=== PATIENT | male | born 1945 | race Caucasian/White ===

== ENCOUNTER → 2019-03-14 10:48 | Outpatient (CLI) | payer OTHER, SELFPAY ==
--- NOTE | 2019-03-14 10:50 | DI.RAD.S_ITS ---
PROCEDURE: XR LUMBAR SPINE MIN 4V INDICATIONS: Chronic progressive low back pain TECHNIQUE: 5 views of the lumbar spine were acquired. COMPARISON: None. FINDINGS: Bones: 5 nonrib-bearing vertebrae are present. There is normal bony alignment. No vertebral body compression fractures. Moderate to severe disc height loss L4-5 and L5-S1 with vacuum disc phenomenon. Moderate endplate spurring. Mild L5 facet arthropathy. No suspicious bony lesions. Soft tissues: Overlying bowel gas pattern is normal. No suspicious soft tissue calcifications. Heavy abdominal aortic calcification. No visible aneurysm. Oblique images: No pars defects. IMPRESSION: 1. Moderate to severe disc degeneration at L4-5 and L5-S1. 2. Mild facet arthropathy at L5 may results in foraminal and/or central canal narrowing. Consider MRI for further evaluation. 3. Atherosclerosis. Dictated by: Migdalia Castanon M.D. on 03/14/2019 at 12:38 Approved by: Migdalia Castanon M.D. on 03/14/2019 at 12:40
--- NOTE | 2019-03-14 10:50 | DI.RAD.S_ITS ---
PROCEDURE: XR CERVICAL SPINE 4V OR 5V INDICATIONS: Neck pain status post fall TECHNIQUE: 5 views of the cervical spine acquired. COMPARISON: None. FINDINGS: Bones: No fractures or dislocations to the C7 level. Moderate to severe disc height loss at C3-4 with mild endplate spurs and uncovertebral joint hypertrophy. Moderate disc height loss and mild spurring at C5-6 and C6-7. Trace anterolisthesis C4 on 5. Oblique images demonstrate moderate to severe right C3-4 and mild left C3-4 bony foraminal stenoses. Soft tissues: No prevertebral soft tissue swelling. Coarse bilateral carotid bulb calcification. IMPRESSION: 1. No radiographic evidence of acute cervical spine trauma. 2. Chronic disc and endplate degeneration resulting in bilateral bony foraminal stenosis at C3-4. 3. Disc and endplate degeneration in the low cervical spine. Dictated by: Migdalia Castanon M.D. on 03/14/2019 at 12:35 Approved by: Migdalia Castanon M.D. on 03/14/2019 at 12:37
== END ==
PROVIDERS: Family Provider Internal Medicine; PCP Internal Medicine; Visit Provider Physical Medicine & Rehabilitation
DX: M47.22 Other spondylosis with radiculopathy, cervical region (principal); M50.11 Cervical disc disorder with radiculopathy, high cervical region; M48.02 Spinal stenosis, cervical region; M47.26 Other spondylosis with radiculopathy, lumbar region; M47.27 Other spondylosis with radiculopathy, lumbosacral region; M51.17 Intervertebral disc disorders with radiculopathy, lumbosacral region; M51.16 Intervertebral disc disorders with radiculopathy, lumbar region; G89.29 Other chronic pain; I70.0 Atherosclerosis of aorta
CPT/HCPCS: 72050; 72110

== ENCOUNTER → 2019-04-03 18:14 | Outpatient (CLI) | payer OTHER, SELFPAY ==
--- NOTE | 2019-04-03 18:16 | DI.MRI.S_ITS ---
PROCEDURE: MR LUMBAR SPINE WO CON INDICATIONS: L5 fracture, stenosis TECHNIQUE: Noncontrast sagittal T1 spin echo and T2 fast echo, sagittal STIR, axial T1 and T2 fast spin echo through the lumbar spine. In cases with scoliosis, additional coronal T2 fast spin echo may be performed. COMPARISON: None. FINDINGS: Image quality: Excellent. Alignment and Curvature: There is normal bony alignment. Bone Marrow: Marrow is of normal overall signal. No acute vertebral body compression fractures. Spinal Cord: Conus medullaris terminates at the L1 level. Visualized cord demonstrates normal signal and size. Paraspinous Soft Tissues: No paravertebral masses. L1-L2: Normal appearance. L2-L3: Normal appearance except for slight disc desiccation. L3-L4: There is a mild to moderate degree of degenerative disc disease at this level, with a broad-based posterior mild disc bulge greater on the left than the right. This extends into the neural foramen and combines with asymmetric left-sided facet osteoarthritis to produce mild to moderate left and minimal right-sided foraminal stenosis with potential for asymmetric impingement on the course of the left-sided L3 nerve root. L4-L5: Moderately severe degenerative disc disease, disc height reduction and disc desiccation are accompanied by a broad-based posterior transverse disc bulge greater on the left than the right, with moderately severe left and moderate right foraminal stenosis. There is likelihood of significant impingement on the course of the left L4 nerve root and mild anterior spinal stenosis is associated. L5-S1: Degenerative disc disease at this level is moderately severe, with disc height reduction, disc desiccation, and mild grade 1 retrolisthesis of L5 on S1. The chronic hyperostosis along the disc annulus margin is slightly greater on the left than the right, results in mild left-sided anterior spinal stenosis, but is also accompanied by facet osteoarthritis that is greater on the left than the right. This results in near severe left and moderate right foraminal stenosis with likelihood of asymmetric impingement on the L5 nerve roots. IMPRESSION: No disc herniation is found. There is a combination of both degenerative disc disease and facet osteoarthritis that is generally greater on the left than the right and results in multilevel mild spinal stenosis but a more prominent degree of foraminal stenosis. No recent trauma found. Dictated by: Jd Kingsley M.D. on 04/04/2019 at 12:21 Approved by: Jd Kingsley M.D. on 04/04/2019 at 12:27
--- NOTE | 2019-04-03 18:16 | DI.MRI.S_ITS ---
PROCEDURE: MR CERVICAL SPINE WO CON INDICATIONS: Multilevel cervical stenosis with radiculopathy TECHNIQUE: Noncontrast sagittal T1 spin echo and T2 fast spin echo, sagittal STIR, foraminal oblique sagittal T2 fast spin echo, and axial gradient echo or T2 fast spin echo through the cervical spine. COMPARISON: None. FINDINGS: Image quality: Excellent. Alignment and Curvature: There is normal bony alignment. Bone Marrow: Marrow demonstrates normal overall signal. Spinal Cord: Visualized spinal cord has normal size and signal. No cerebellar tonsillar herniation. Paraspinous Soft Tissues: No paravertebral masses. Prevertebral soft tissues are normal in thickness. C2-C3: Minimal degenerative disc desiccation is present, no appreciable spinal or foraminal stenosis. C3-C4: The degenerative disc disease at this level is moderately severe, with a prominent degree of disc height reduction and disc desiccation and a broad-based transverse disc bulge that appears chronic, and extends into the posterolateral recess bilaterally in the neural foramen. As result when combined with facet hyperostosis there is moderately severe symmetric nerve root impingement at this level with likelihood of significant bilateral C4 nerve root impingement. C4-C5: The degenerative disc disease at this level is relatively mild, with disc height reduction and moderate disc desiccation but no spinal stenosis. Facet hyperostosis results in mild symmetric foraminal stenosis. There is potential for C5 nerve root impingement as a result. C5-C6: Moderate degenerative disc disease, disc height reduction and desiccation. Facet osteoarthritis is moderate, symmetric, and there is a posterior broad-based mild disc bulge. This results in mild to moderate spinal stenosis and foraminal stenosis present as mild/moderate. Bilateral mild C6 nerve root impingement likely is present. C6-C7: Degenerative disc disease is moderate, facet osteoarthritis is moderate. There is a broad-based posterior slight disc bulge and mild anterior spinal stenosis. Mild to moderate symmetric foraminal stenosis is present with potential for C7 nerve root impingement bilaterally. C7-T1: Normal appearance. IMPRESSION: Multilevel degenerative disc disease and facet osteoarthritis generally symmetric and discussed in detail by level in the body of the report above. Multilevel nerve root impingement would be expected as noted, with potential for significant multilevel radiculopathy. Spinal stenosis is relatively mild in this patient, is seen at C3-4 and C5-6. Dictated by: Jd Kingsley M.D. on 04/04/2019 at 10:34 Approved by: Jd Kingsley M.D. on 04/04/2019 at 10:43
== END ==
PROVIDERS: Family Provider Internal Medicine; PCP Internal Medicine; Visit Provider Physical Medicine & Rehabilitation
DX: M50.11 Cervical disc disorder with radiculopathy, high cervical region (principal); M47.22 Other spondylosis with radiculopathy, cervical region; M48.02 Spinal stenosis, cervical region; M48.061 Spinal stenosis, lumbar region without neurogenic claudication; M48.07 Spinal stenosis, lumbosacral region; M51.36 Other intervertebral disc degeneration, lumbar region; M51.37 Other intervertebral disc degeneration, lumbosacral region; M47.816 Spondylosis without myelopathy or radiculopathy, lumbar region; M47.817 Spondylosis without myelopathy or radiculopathy, lumbosacral region; M43.17 Spondylolisthesis, lumbosacral region
CPT/HCPCS: 72141; 72148

== ENCOUNTER 2019-06-12 06:47 | Outpatient (CLI) | payer OTHER, SELFPAY ==
[2019-06-12] VITALS (9 sets, daily range): BP systolic 109–162; BP diastolic 72–98; PULSE 68–84; RESP 16–17; TEMP 36.2; O2SAT 93–97
--- NOTE | 2019-06-12 06:49 | DI.RAD.S_ITS ---
PROCEDURE: PAIN L/SI FACET INJ/BLK 1STL INDICATIONS: SPONDYLOSIS FINDINGS: Fluoroscopic spot filming was performed to verify placement of spinal needles at the left L4-L5-S1 neural foraminal level(s), as labeled on the films. Appropriate location(s) of the needle tip(s) was confirmed by injection of iodinated contrast. IMPRESSION: Successful needle tip localization for L4-S1 left-sided medial branch blocks. Dictated by: Jd Kingsley M.D. on 06/12/2019 at 12:53 Approved by: Jd Kingsley M.D. on 06/12/2019 at 13:07
[2019-06-12] MEDS: MIDAZOLAM 5 MG/5 ML VIAL IV (08:26)
[2019-06-12] MEDS: IOPAMIDOL 15 ML VIAL 3 ML INJ (08:36)
[2019-06-12] MEDS: BUPIVACAINE 0.5% (PF) VIAL 5 ML INJ (08:36)
[2019-06-12] MEDS: LIDOCAINE 1% 20 ML 10 ML INJ (08:36)
--- NOTE | 2019-06-12 08:38 | PC.NURSE ---
ASSISTING PT OFF TABLE AND TRANSPORTING TO POST PROC AREA IN STABLE CONDITION. PASSING RN CARE OF PT OFF TO NILO MARCANO.
--- NOTE | 2019-06-12 08:44 | PM.PROC.1 ---
Procedures Date/Time Date of procedure: 06/12/19 Time of procedure: 08:44 General Procedure description: POST OP DIAGNOSIS 1. FACET ARTHROPATHY PROCEDURES 1. Left L4, L5 and S1 MB BLOCKS PHYSICIAN: DO ANALI Zurita Shay is referred by for treatment of Left Axial LBP. DESCRIPTION OF PROCEDURE Fluoroscopically guided, contrast-controlled left L4, L5 and S1 medial branch blocks with 0.5cc of 0.5% Marcaine. Following review of allergy and review of potential side effects and complications, including, but not necessarily limited to, infection, allergic reaction, local tissue breakdown, nerve injury, paralysis, stroke and possible , the patient indicated that the patient understood and agreed to proceed. An informed consent document was signed by the patient, witnessed by a nurse, and placed in the patient's chart. After review of previous anaesthesic history and IV conscious sedation the patient was deemed safe to proceed with todays procedure with IV conscious sedation as ASA class II designation. Safety time-out was performed to confirm patient ID, procedure to be performed and site of procedure. IV sedation was accomplished with 2mg of Versed was administered by the RN after DO order, titrated to patient comfort during the course of the procedure while the patient remained responsive to all verbal commands. In the prone position, following sterile prep and drape of the lumbar region, the left L4, L5 and S1 anatomical location of the medial branch of the dorsal ramus was identified fluoroscopically. Subsequently an anesthetic skin wheal using 1% lidocaine solution was initiated at each of the anatomical spots. Subsequently then a 22-gauge 3.5-inch spinal needle was atraumatically introduced and advanced under fluoroscopic guidance at each of the corresponding sites at the left L4, L5 and S1 MB. After negative aspiration, 0.2 cc of Isovue 200 was injected, confirming placement without vascular or intrathecal uptake. Subsequently then 0.5 cc of 0.5% Marcaine solution was injected at each of the corresponding sites at the left L4, L5 and S1 medial branch locations. The patient tolerated the procedure well without signs or symptoms of complications. The patient tolerated the procedure well without signs or symptoms of complications prior to transfer to the recovery area continued monitoring without incident. Post-procedure, the patient was monitored initiating provocative activities to measure the amount of relief from block of the facetogenic pain. The patient reported a VAS of 7 prior to the procedure and a post-procedure VAS of 1. It has been a pleasure to assist in the diagnostic and therapeutic care of your patient. Total Fluoroscopy Time: 9 seconds Total Conscious Sedation Time: 24min POST OP INSTRUCTIONS The patient was provided with a Pain Log to complete over the next several hours and subsequent days prior to the patient's follow up with the ordering physician. If the patient has outdoor advertising leasing agent relief to the solution applied, then they may be a candidate for medial branch rhizotomy. The patient is aware, was provided, once again, with a Pain Log and will follow up with the referring physician for review and clinical correlation Uriah Garsia DO Complications: none
--- NOTE | 2019-06-12 09:08 | PC.NURSE ---
pt arrived back to room after procedure. Able to transfer from w/c to chair with only min assistance. Monitoring resumed from NILO Ureña.
== END 2019-06-12 09:09 | disposition home or self-care (01) ==
PROVIDERS: Family Provider Internal Medicine; PCP Internal Medicine; Referring Provider Physical Medicine & Rehabilitation; Visit Provider Physical Medicine & Rehabilitation
DX: M47.817 Spondylosis without myelopathy or radiculopathy, lumbosacral region (principal); M47.816 Spondylosis without myelopathy or radiculopathy, lumbar region; M54.5 Low back pain
CPT/HCPCS: 64493; 64494; 99152; J2250; J3010

== ENCOUNTER → 2019-09-29 08:50 | Outpatient (CLI) | payer OTHER, SELFPAY ==
[2019-09-30 08:04] LABS: COVID19 Sendout Not Detected (Not Detect)
== END ==
PROVIDERS: Family Provider Internal Medicine; PCP Internal Medicine; Visit Provider Nurse Practitioner
DX: Z01.812 Encounter for preprocedural laboratory examination (principal)
CPT/HCPCS: 87635

== ENCOUNTER 2019-10-02 08:21 | Outpatient (CLI) | payer OTHER, SELFPAY ==
[2019-10-02] VITALS (8 sets, daily range): BP systolic 128–174; BP diastolic 53–96; PULSE 63–101; RESP 15–18; TEMP 36.2; O2SAT 91–94
--- NOTE | 2019-10-02 08:24 | DI.RAD.S_ITS ---
PROCEDURE: PAIN C/T FACET INJ/BLK 1ST L INDICATIONS: INTERVERTEBRAL DISC DISPLACEMENT FINDINGS: Fluoroscopic spot filming was performed to verify placement of spinal needles at the right C5-C6 and C6-C7 level(s), as labeled on the films. Appropriate location(s) of the needle tip(s) was confirmed by injection of iodinated contrast. IMPRESSION: Intraprocedural examination within normal limits. Dictated by: Adelso Encinas M.D. on 10/02/2019 at 10:07 Approved by: Adelso Encinas M.D. on 10/02/2019 at 10:08
[2019-10-02] MEDS: fentaNYL 100 MCG/2 ML INJ 50 MCG IV (09:36)
[2019-10-02] MEDS: MIDAZOLAM 5 MG/5 ML VIAL IV (09:36)
[2019-10-02] MEDS: IOPAMIDOL 15 ML VIAL 3 ML INJ (09:42)
[2019-10-02] MEDS: BUPIVACAINE 0.5% (PF) VIAL 2 ML INJ (09:42)
[2019-10-02] MEDS: DEXAMETHASONE 10 MG/ML VIAL 20 MG INJ (09:42)
--- NOTE | 2019-10-02 10:00 | PC.NURSE ---
pt rturned to pre proc room via wc, stable transfer from wc to chair, resumed monitoring by this RN
--- NOTE | 2019-10-02 10:02 | P.PCN_ITS ---
Date/Time/Diagnoses Pre-procedure diagnosis: 1. FACET ARTHROPATHY 2. AXIAL NECK PAIN Post-procedure diagnosis: same Procedure Notes Procedure: 1. FLUOROSCOPICALLY GUIDED, CONTRAST-CONTROLLED RIGHT C5/6 AND C6/7 FACET JOINT INJECTIONS WITH CONSCIOUS SEDATION. Indications: Shay is referred by for treatment of Axial Neck Pain Physician: Uriah Garsia Complications: none Procedure in detail & Post-procedure care: DESCRIPTION OF PROCEDURE Fluoroscopically guided, contrast-controlled right C5/6 and C6/7 facet joint injections with conscious sedation. Following review of allergy and review of potential side effects and complications, including, but not necessarily limited to, infection, allergic reaction, local tissue breakdown, stroke, temporary or permanent nerve injury and paralysis, the patient indicated that the patient understood and agreed to proceed. An informed consent document was signed by the patient, witnessed by a nurse, and placed in the patient's chart. Additionally, other treatment options including medications, modalities, and physical therapy were reviewed with the patient. After review of previous anaesthesic history and IV conscious sedation the patient was deemed safe to proceed with today?s procedure with IV conscious sedation as ASA class II designation. Safety time-out was performed to confirm patient ID, procedure to be performed and site of procedure. IV sedation was accomplished with a combination of 3mg of Versed and 50mcg of Fentanyl was administered by the RN after DO order, titrated to patient comfort during the course of the procedure while the patient remained responsive to all verbal commands In the prone position, following sterile prep and drape of the cervical spine region, the posterior aspect of the right C5/6 and C6/7 facet joints were identified fluoroscopically. The skin was anesthetized via a 25-gauge 1.5-inch needle with 1% lidocaine solution into the corresponding facet joints. At this point, a 25-gauge 2.5-inch spinal needle was atraumatically introduced and advanced under fluoroscopic guidance into the corresponding facet joints. Following negative aspiration, injections of approximately 0.2-cc of Isovue 200 confirmed interarticular placement without vascular uptake. At this point, a total of 1cc including 0.5cc or 5mg of dexamethasone combined with 0.5cc of 1% lidocaine solution was injected without complication into each of the corresponding facet joints. The procedure tolerated the procedure well without signs or symptoms of complications prior to transfer to the recovery area continued monitoring without incident. The patient was then transferred to the recovery area where they were observed for an appropriate period of time after the injection. The patient reported a VAS score of 7 prior to the procedure and a post- procedure VAS of 0. POST OP INSTRUCTIONS They were provided a Pain Log to continue to record their response to the target-specific procedure prior to their follow-up visit with their referring physician. Additionally, specific post-injection care instructions and a contact number to our office were provided if concerns arise regarding possible complications associated with the procedure are suspected.
--- NOTE | 2019-10-02 14:18 | PC.NURSE ---
Pt tolerated procedure well. No issues. VSS upon transfer to post patient care [place]. IV Fent and Midazolam given by NILO aHmilton, all others by Dr. Garsia.
== END 2019-10-02 10:28 | disposition home or self-care (01) ==
LOC: RAD 08:23
PROVIDERS: Family Provider Internal Medicine; PCP Internal Medicine; Referring Provider Physical Medicine & Rehabilitation; Visit Provider Physical Medicine & Rehabilitation
DX: M47.812 Spondylosis without myelopathy or radiculopathy, cervical region (principal); M54.2 Cervicalgia
CPT/HCPCS: 64490; 64491; 99152; J1100; J2250; J3010